=== PATIENT | female | born 1955 | race Caucasian/White ===

== ENCOUNTER 2020-06-10 10:35 | Outpatient (CLI) | payer BC, SELFPAY ==
--- NOTE | 2020-06-10 09:30 | DI.RAD_ITS ---
EXAM: XR SHOULDER LT COMPLETE 2+V CLINICAL HISTORY: left shoulder pain TECHNIQUE: 2D digital imaging was performed. COMPARISON: No exams were available for comparison FINDINGS: There is spurring at the AC joint and greater tuberosity. There is mild narrowing of the glenohumera l joint space and mild spurring at the glenoid. No soft tissue calcifications are seen. IMPRESSION: Degenerative changes, greatest of the AC joint.
== END 2020-06-10 10:55 ==
PROVIDERS: PCP Family Medicine; Referring Provider Family Medicine; Visit Provider Student in an Organized Health Care Education/Training Program
DX: M19.012 Primary osteoarthritis, left shoulder (principal)
CPT/HCPCS: 73030

== ENCOUNTER 2020-06-22 00:47 | Outpatient (CLI) | payer BC, SELFPAY ==
--- NOTE | 2020-06-22 08:00 | DI.MRI_ITS ---
EXAM: MR UPPER JOINT LT WO CLINICAL HISTORY: traumatic rotator cuff tear, failed time PT,[id number]. TECHNIQUE: Multiplanar multisequence MRI was performed. COMPARISON: CR XR SHOULDER LT COMPLETE 2+V from 06/10/2020 FINDINGS: BONES: Mild marrow edema in the lateral aspect of the humeral head which may represent a contusion. No evidence of a fracture. JOINTS: Moderate degenerative changes are seen at the acromioclavicular joint. The glenohumeral join t is normal. TENDONS: Supraspinatus: Full-thickness tear of the supraspinatus tendon with retraction to the level of the ac romioclavicular joint. Infraspinatus: Complete tear of the infraspinatus tendon with retraction almost to the glenohumeral j oint. Subscapularis: Findings suspicious for partial tear of the superior aspect of the subscapularis tendo n. Teres Minor: Unremarkable. Biceps and Jermyn: There appears to be medial subluxation of the biceps tendon. MUSCLES: Moderate fatty atrophy of the infraspinatus muscle and mild fatty atrophy of the supraspinat us muscle. GLENOID LABRUM: Unremarkable on this noncontrast examination. SOFT TISSUES: Hyperintense signal seen in the deltoid tendon posteriorly at its insertion onto the ac romion suspicious for tear LIGAMENTS: Unremarkable. OTHER: Fluid in the subacromial subdeltoid bursa with superior subluxation of the humeral head consis tent with a rotator cuff tear. IMPRESSION: 1. Full-thickness large tear of the supraspinatus tendon with retraction almost to the level of the a cromioclavicular joint. 2. Complete tear of the infraspinatus tendon with retraction almost to the glenohumeral joint. 3. Findings suspicious for a partial tear of the superior aspect of the subscapularis tendon. 4. Findings suspicious for a tear the deltoid tendon posteriorly near its insertion onto the acromion . DATA REPOSITORY:
== END 2020-06-22 01:07 ==
PROVIDERS: PCP Family Medicine; Visit Provider Student in an Organized Health Care Education/Training Program
DX: S46.012A Strain of muscle(s) and tendon(s) of the rotator cuff of left shoulder, initial encounter (principal)
CPT/HCPCS: 73221